=== PATIENT | male | born 1990 | race Two or more races ===

== ENCOUNTER 2020-11-28 15:32 | Emergency (ER) | payer OTHER, SELFPAY ==
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
[2020-11-28 16:29] VITALS: BP 157/112; PULSE 92; RESP 18; TEMP 37.4; O2SAT 96; BMI 36.0
[2020-11-28] MEDS: Acetaminophen 325 MG TABLET 650 MG PO (16:41)
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
== END 2020-11-28 19:04 | disposition home or self-care (01) ==
PROVIDERS: Emergency Provider Emergency Medicine
DX: S39.012A Strain of muscle, fascia and tendon of lower back, initial encounter (principal); M54.2 Cervicalgia; B20 Human immunodeficiency virus [HIV] disease; V89.2XXA Person injured in unspecified motor-vehicle accident, traffic, initial encounter; Y93.9 Activity, unspecified; Y92.9 Unspecified place or not applicable; Y99.9 Unspecified external cause status
CPT/HCPCS: 72040; 72100; 99283; 99284